=== PATIENT | female | born 1975 | race Caucasian/White ===

== ENCOUNTER 2017-08-18 21:07 | Emergency (ER) | payer OTHER ==
[2017-08-18 22:28] VITALS: BP 122/75; PULSE 75; RESP 16; O2SAT 96
--- NOTE | 2017-08-18 23:13 | PD ---
HPI Chief Complaint: Psychiatric Symptoms Time Seen by Provider: 22:37 Travel History International Travel<30 days: No Contact w/Intl Traveler<30days: No Traveled to known affect area: No History of Present Illness HPI 41-year-old female presents emergency department as a transfer from [facility] under a Anderson act for psychological evaluation by the psychiatrist. The patient had initially presented to the ER with complaints of cough and asthma. She states that she had some chest discomfort. During her evaluation she had informed the ER physician that she was feeling depressed and having suicidal thoughts. She stated that she has had a lot of problems going on. She had what sounds to be a anxiety panic attack during a job interview today. She stated that she felt like driving her car into a tree. The patient was placed under a Anderson act and sent to the [facility]. Patient had routine laboratory tests performed. Patient reports having asthma cold symptoms over the past week. She has had runny nose, cough, congestion, chest pain, chest tightness, and general malaise. She states that she was seen on 2 prior occasions was given prescriptions but has not been able to fill them yet. PFSH Past Medical History Narrative Medical Asthma, arthritis, depression Tetanus Vaccination: < 5 Years Past Surgical History Narrative Surgical Hysterectomy Social History Alcohol Use: No Tobacco Use: No Substance Use: No Review of Systems General / Constitutional: No: Fever Eyes: No: Visual changes HENT: Positive: Congestion, No: Headaches Cardiovascular: Positive: Chest Pain or Discomfort Respiratory: Positive: Cough, Shortness of Breath, Wheezing Gastrointestinal: No: Abdominal Pain Genitourinary: No: Dysuria Musculoskeletal: No: Pain Skin: No Rash Neurologic: No: Weakness Psychiatric: Positive: Depression, Suicidal Ideations, Mood Disorder, No: Anxiety, Disorder of Thought, Substance Abuse, Homicidal Ideation Endocrine: No: Polydipsia Hematologic/Lymphatic: No: Easy Bruising Physical Exam Narrative GENERAL: Well-nourished, well-developed patient. SKIN: Warm and dry. HEAD: Normocephalic and atraumatic. EYES: No scleral icterus. No injection or drainage. ENT: No nasal drainage noted. Mucous membranes pink. Airway patent. NECK: Supple, trachea midline. Moves head freely without obvious discomfort. CARDIOVASCULAR: Regular rate and rhythm without murmurs, gallops, or rubs. RESPIRATORY: Breath sounds equal bilaterally. No accessory muscle use. No wheezes, rales or rhonchi. No respiratory distress. Normal respiratory rate and effort. GASTROINTESTINAL: Abdomen soft, non-tender, nondistended. EXTREMITIES: No cyanosis or edema. BACK: Nontender without obvious deformity. No CVA tenderness. NEURO: Patient is alert and oriented. no sensorimotor deficits. Nonfocal. Normal speech. PSYCH: No delusions. No auditory or visual hallucinations. Data Data Last Documented VS Vital Signs Date Time Temp Pulse Resp B/P (MAP) Pulse Ox O2 Delivery O2 Flow Rate FiO2 08/18/17 22:28 75 16 122/75 (91) 96 Room Air Orders Orders Psych Screen (08/18/17 22:37) MDM Medical Decision Making Medical Screen Exam Complete: Yes Emergency Medical Condition: Yes Medical Record Reviewed: Yes Interpretation(s) I reviewed the patient's laboratory testing. I did not see an EKG. I have advised the ER staff to obtain an EKG if an EKG has not been performed. Differential Diagnosis MDM: High Differential diagnoses: Schizophrenia, schizoaffective disorder, bipolar, anxiety, depression, adjustment reaction, mood disorder NOS, ODD, depressive disorder NOS, infection,electrolyte abnormality, malingering. Narrative Course Mental health screening discussed with the patient. Psychiatric screen ordered. I reviewed the patient's laboratory testing. Patient is medically stable for psychiatric admission. This is medical clearance for psychiatric admission Diagnosis Primary Impression: Medical clearance for psychiatric admission Condition: Stable Toño Hammond Aug 18, 2017 23:13
[2017-08-19 04:40] VITALS: BP 130/71; PULSE 78; RESP 18; O2SAT 99
--- NOTE | 2017-08-19 16:07 | PD ---
History of Present Illness Chief Complaint: Psychiatric Symptoms Time Seen by Provider: 15:50 Travel History International Travel<30 Days: No Contact w/Intl Traveler<30days: No Known affected area: No Legal Status Legal Status: Involuntary Anderson Act Signed By: Godwin AGUILA ([id number]) Anderson Act Comment: CERTIFICATE OF PROFESSIONAL INITIATING INVOLUNTARY EXAMINATION08/18/17@1630 History of Present Illness: History of Present Illness HPI 41-year-old, single female with reported history of bipolar disorder, anxiety, who presents emergency department as a transfer from [facility] under a Anderson act for psychiatric evaluation. The patient had initially presented to the ER with complaints of cough and asthma. She had what sounds to be a panic attack during a job interview today and she drove herself to the emergency department. While undergoing evaluation she did report that she had been feeling depressed. She states that she was asked if she ever had suicidal ideation and that she laughed and said that she had thoughts of driving her car into a tree prior to going to the ED. She did not make any attempts at harming herself. She goes on to state "it was just a thought and not something that I had planned on doing". The patient was monitored here in secure environment and she presented no behavioral dysregulation and no suicidality. Electronic medical record is reviewed. No previous contact with [facility] psychiatry. Lab work reviewed from [facility]. The patient is seen in J pod. She is awake, alert, appears younger than stated age, dressed in hospital [facility] and maintaining basic hygiene. Her speech is clear, logical, of normal rate and tone. Her affect is appropriate. Adequate amount of eye contact. Patient presents no evidence of any psychosis. Denies any hallucinations, no delusions and no paranoia are evident. Mood is anxious. She admits to feeling anxious and overwhelmed at times due to family stressors including having moved to this area approximately 2 years ago. The patient denies any suicidal or homicidal ideation, intent or plan. She states" I would never do that. I have kids". Patient is requesting to be discharged. She states that she does not like to take medications and is not interested in receiving any medications at this time. [facility] Past Medical History Anemia: Yes Arthritis: Yes Asthma: Yes Bipolar Disorder: Yes Anxiety: Yes Depression: Yes Diminished Hearing: No Tetanus Vaccination: < 5 Years ?: Not Past Surgical History Surgical History: No Previous Surgery Psychiatric History Psychiatric History Hx Psychiatric Treatment: DIAGNOSED WITH BI- POLAR DISORDER, DEPRESSION/ ANXIETY AND PANIC DISORDER OVER 15 YEARS AGO, SHE HAS NOT BEEN ON MEDICATION OR UNDER THE CARE OF A PSYCHIATRIST SINCE. One previous suicide attempt at age 16 by attempted overdose History of Inpatient Treatment: No Guns or firearms in home: No Social History Born and raised in [place]. Has been in the [place] since age 19. Patient has completed high school. She has 3 children ages 21 years 17 years and 15 years. She currently lives with her boyfriend and his family. She is currently unemployed and looking for work. Hx Alcohol Use: No Hx Tobacco Use: No Hx Substance Use: No Hx of Substance Use Treatment: No Family Psychiatric History Negative Allergies-Medications (Allergen,Severity, Reaction): Coded Allergies: Penicillins (Verified Allergy, Severe, Anaphylaxis, 08/19/17) levofloxacin (Verified Allergy, Severe, Anaphylaxis, 08/19/17) morphine (Verified Allergy, Severe, Anaphylaxis, 08/19/17) Reported Meds & Prescriptions Reported Meds & Active Scripts Active No Active Prescriptions or Reported Medications Review of Systems Psychiatric: COMPLAINS OF: Anxiety Except as stated in HPI: all other systems reviewed are Neg Mental Status Examination Appearance: Appropriate Consciousness: Alert Orientation: x4 Motor Activity: Normal gait Speech: Unremarkable Language: Adequate Fund of Knowledge: Adequate Attention and Concentration: Adequate Memory: Unremarkable Mood: Appropriate Affect: Appropriate Thought Process & Associations: Intact, Logical, Goal directed Thought Content: Appropriate Hallucination Type: None Delusion Type: None Suicidal Ideation: No Suicidal Plan: No Suicidal Intention: No Homicidal Ideation: No Homicidal Plan: No Homicidal Intention: No Insight: Fair Judgment: Adequate [facility] Medical Decision Making Medical Record Reviewed: Yes Assessment/Plan 41-year-old, single female with reported history of bipolar disorder, anxiety, who presents emergency department as a transfer from [facility] under a Anderson act for psychiatric evaluation. The patient had initially presented to the ER with complaints of cough and asthma. She had what sounds to be a panic attack during a job interview today and she drove herself to the emergency department. While undergoing evaluation she did report that she had been feeling depressed. She states that she was asked if she ever had suicidal ideation and that she laughed and said that she had thoughts of driving her car into a tree prior to going to the ED. She did not make any attempts at harming herself. Patient was monitored and presented no behavioral dysregulation and no suicidality. She denies any suicidal ideation or intent. She states "it was just a thought and not something that I had planned on doing". The patient has adequate protective factors. She also is future oriented and wants to be able to get a job . She does not want to consider using any medications to treat her anxiety disorder at this time. She does not present evidence of unstable mental illness has defined under the Anderson act. At this time the patient is requesting discharge and I find no criteria to keep her here against her well. She has been provided psychoeducation. The Anderson act as lifted. Psychiatrically clear for discharge from the ED. Orders Orders Psych Screen (08/18/17 22:37) Diet Regular Basic (08/19/17 Breakfast) Diet Regular Basic (08/19/17 Lunch) Results Vital Signs Date Time Temp Pulse Resp B/P (MAP) Pulse Ox O2 Delivery O2 Flow Rate FiO2 08/19/17 04:40 78 18 130/71 (90) 99 Room Air 08/18/17 22:28 75 16 122/75 (91) 96 Room Air Diagnosis Primary Impression: Medical clearance for psychiatric admission Additional Impression: Adjustment disorder Psychiatrically Cleared: Yes Med/ Other Pt Specific Info: No Meds Exist/No RX given Prescriptions No Active Prescriptions or Reported Meds Disposition: 01 DISCHARGE HOME Condition: Stable Problem Qualifiers Additional Impression: Adjustment disorder Qualified Codes: F43.22 - Adjustment disorder with anxiety RomCarolshe Justice COP EXAMINER Aug 19, 2017 16:07
--- NOTE | 2017-08-19 16:28 | PD ---
Physical Exam Time Seen by Provider: 16:27 Narrative YEISON Medina has evaluated the patient, lifted Justin fuller and cleared the patient for discharge. Data Data Last Documented VS Vital Signs Date Time Temp Pulse Resp B/P (MAP) Pulse Ox O2 Delivery O2 Flow Rate FiO2 08/19/17 04:40 78 18 130/71 (90) 99 Room Air Orders Orders Psych Screen (08/18/17 22:37) Diet Regular Basic (08/19/17 Breakfast) Diet Regular Basic (08/19/17 Lunch) MDM Supervised Visit with FLORENCIO: No Narrative Course YEISON Medina has evaluated the patient, lifted Justin act and cleared the patient for discharge. Patient contracts safety. Denies suicidal or homicidal ideations. Patient will be provided community resource packet to / [facility] for follow-up. Has friends and family for support. Patient was medically cleared by alternate provider prior to psych screening. Patient has been evaluated by psychiatry and and is now cleared for discharge. Diagnosis Primary Impression: Adjustment disorder Qualified Codes: F43.20 - Adjustment disorder, unspecified Referrals: [facility] (Out patient) [facility] Primary Care Physician Psychiatrist Vinny FULLER Behavioral Patient Instructions: General Instructions, Mood Disorders (ED) Additional Instruction: Contract safety to your self and others Follow-up with psychiatry Follow-up with primary care provider Follow-up with Robbie Dhaliwal Return to the emergency department immediately with worsening of symptoms Med/Other Pt SpecificInfo: No Change to Meds, No Meds Exist/No RX given Scripts No Active Prescriptions or Reported Meds Disposition: 01 DISCHARGE HOME Condition: Stable Adelina Bray Aug 19, 2017 16:28
[2017-08-19 16:35] VITALS: BP 141/82; PULSE 68; RESP 16; TEMP 98.3; O2SAT 99
== END 2017-08-19 17:15 | disposition home or self-care (01) ==
LOC: NEPJ 21:07
DX: F43.22 Adjustment disorder with anxiety (principal); J45.909 Unspecified asthma, uncomplicated; R07.9 Chest pain, unspecified; F41.8 Other specified anxiety disorders; Z88.5 Allergy status to narcotic agent; Z88.0 Allergy status to penicillin
CPT/HCPCS: 99283